=== PATIENT | male | born 1985 | race Two or more races ===

== ENCOUNTER 2025-01-25 13:39 | Emergency (ER) | payer OTHER ==
[~2025-01-25] VITALS: Ht 177.8 cm; Wt 65.8 kg
[2025-01-25 14:08] VITALS: BP 117/54; O2SAT 100
[2025-01-25] MEDS ORDERED: ORPHENADRINE CITRATE 30 MG/ML AMPUL IM STA (15:21)
[2025-01-25] MEDS ORDERED: DEXAMETHASONE SODIUM PHOSPHATE 4 MG/ML VIAL IM STA (15:21)
[2025-01-25] MEDS ORDERED: KETOROLAC TROMETHAMINE 15 MG VIAL IM STA (15:21)
[2025-01-25] MEDS ORDERED: ORPHENADRINE CITRATE 30 MG/ML AMPUL ONE (16:07)
[2025-01-25] MEDS ORDERED: DEXAMETHASONE SODIUM PHOSPHATE 4 MG/ML VIAL ONE (16:07)
[2025-01-25] MEDS ORDERED: KETOROLAC TROMETHAMINE 30 MG VIAL ONE (16:07)
[2025-01-25 17:16] LABS: BASO % 0.3 % (0.1-1.2); EOS # 0.19 (0.04-0.54); EOS % 2.1 % (0.7-7.0); LYMPH # 1.81 (1.18-3.74); LYMPH % 20.1 % (19.3-53.1); MEAN PLATELET VOLUME 10.10 fl (9.4-12.4); MONO # 0.92 (0.24-0.82); MONO % 10.2 % (4.7-12.5); NEUT # 6.04 (1.56-6.13); NEUT % 67.0 % (34.0-71.1); RED CELL DISTRIBUTION WIDTH 11.9 % (11.6-14.4)
[2025-01-25 17:57] LABS: BUN CREA RATIO 16.0 (7.0-25.0); CREATININE SERUM 0.88 mg/dL (0.70-1.30); GFR 95.91; GLUCOSE FASTING 111.0 mg/dL (65-100); OSMOLALITY SERUM 284.0 MOSM/KG (275-295); TSH 0.383 uIU/mL (0.358-3.74)
[2025-01-25] MEDS ORDERED: HYDROXYZINE HCL25 MG PO (18:20)
== END 2025-01-25 18:25 | disposition home or self-care (01) ==
LOC: ER 14:23
PROVIDERS: General Practice
DX: R07.89 Other chest pain (principal); F41.9 Anxiety disorder, unspecified; R06.02 Shortness of breath; R00.2 Palpitations